=== PATIENT | male | born 1960 ===

== ENCOUNTER → 2023-01-20 | Outpatient (CLI) | payer MEDICARE, BC ==
[~2023-01-20] VITALS: Ht 162.6 cm; Wt 89.0 kg
[2023-01-20 13:54] VITALS: BP 133/82; PULSE 77; RESP 16; TEMP 99; O2SAT 96
== END | disposition home or self-care (01) ==
LOC: SRCNTR 13:00
PROVIDERS: ATTEND Internal Medicine Pulmonary Disease
DX: I12.0 Hypertensive chronic kidney disease with stage 5 chronic kidney disease or end stage renal disease (principal); N18.6 End stage renal disease; I25.10 Atherosclerotic heart disease of native coronary artery without angina pectoris; E66.9 Obesity, unspecified; Z95.1 Presence of aortocoronary bypass graft; Z99.2 Dependence on renal dialysis
CPT/HCPCS: G0463; Z7500